=== PATIENT | female | born 1975 | race Caucasian/White ===

== ENCOUNTER 2018-02-03 22:02 | Emergency (ER) | payer OTHER ==
[~2018-02-03] VITALS: Ht 172.7 cm; Wt 124.7 kg
[2018-02-03 22:22] VITALS: Ht 172.7 cm; Wt 124.7 kg
[2018-02-04 02:10] VITALS: BP 132/78
== END 2018-02-04 02:10 | disposition home or self-care (01) ==
LOC: ED 22:02
DX: M54.41 Lumbago with sciatica, right side (principal); E66.9 Obesity, unspecified; Z68.41 Body mass index [BMI] 40.0-44.9, adult; N39.0 Urinary tract infection, site not specified
CPT/HCPCS: J1885; Q0162

== ENCOUNTER 2020-01-03 21:59 | Emergency (ER) | payer OTHER ==
[~2020-01-03] VITALS: Ht 167.6 cm; Wt 117.0 kg
[2020-01-03 22:18] VITALS: Ht 167.6 cm; Wt 117.0 kg
[2020-01-03 22:58] LABS: BASOPHIL % 0.1 % (0-2); PLATELET COUNT 454 x10^3mcL (130-400); RED CELL DISTRIBUTION WIDTH 13.3 % (11.5-14.5)
[2020-01-03 23:17] LABS: CALCIUM 8.5 mg/dL (8.5-10.1); CARBON DIOXIDE 20.2 mmol/L (21-32); CREATININE SERUM 1.1 mg/dL (0.6-1.0); POTASSIUM SERUM 3.6 mmol/L (3.5-5.1)
[2020-01-03 23:20] LABS: ALBUMIN 3.8 g/dL (3.4-5.0); BILIRUBIN TOTAL 0.4 mg/dL (0.20-1.00); TOTAL PROTEIN, SERUM 7.6 g/dL (6.4-8.2)
[2020-01-04 00:55] VITALS: BP 130/83
[2020-01-04 01:23] LABS: microscopic required? YES; urine erythrocyte 3+ (NEGATIVE)
== END 2020-01-04 01:04 | disposition home or self-care (01) ==
LOC: ED 21:59
PROVIDERS: Emergency Medicine
DX: N39.0 Urinary tract infection, site not specified (principal); Z88.8 Allergy status to other drugs, medicaments and biological substances
CPT/HCPCS: J1885; J7030